=== PATIENT | male | born 1980 | race Asian ===

== ENCOUNTER 2023-04-29 09:52 | Outpatient (CLI) | payer MEDICAID | END 2023-04-29 09:53 | disposition short-term general hospital (02) | LOC: EMS 09:52 | PROVIDERS: ATTEND Radiology Radiation Oncology | DX: R55 Syncope and collapse (principal); R41.0 Disorientation, unspecified; R00.0 Tachycardia, unspecified | CPT/HCPCS: A0425; A0429; A0999 ==